=== PATIENT | male | born 1935 | race Caucasian/White ===

== ENCOUNTER 2022-09-11 15:38 | Inpatient (IN) | payer MEDICARE ==
[~2022-09-11] VITALS: Ht 177.8 cm; Wt 70.5 kg
[2022-09-11 15:58] VITALS: BP 196/81
[2022-09-11 16:13] LABS: ACT PARTIAL THROMBO TIME 26.8 SECONDS (20.0-32.1); INTERNATIONAL NORM RATIO 1.1 (2.0-3.5)
[2022-09-11 16:23] LABS: ALKALINE PHOSPHATASE 76 U/L (46-116); BUN 17 mg/dl (9-23); CHLORIDE 85 mmol/L (98-107); CREATININE 1.16 mg/dL (0.70-1.30); LIPASE 51 U/L (12-53); POTASSIUM 4.3 mmol/L (3.4-5.1); SGPT/ALT 19 U/L (10-49); SODIUM 121 mmol/L (136-145); TOTAL PROTEIN 6.9 gm/dL (6.0-8.0)
[2022-09-11 16:24] LABS: BILIRUBIN Negative (Negative); BLOOD Negative (Negative); CLARITY Clear (Clear); COLOR Yellow (Yellow); GLUCOSE Negative (Negative); KETONE Negative (Negative); LEUKO ESTERASE Negative (Negative); NITRITE Negative (Negative); PH 7.5 (4.5-8.0); SPECIFIC GRAVITY 1.015 (1.001-1.030)
[2022-09-11 17:08] LABS: RBC 0-2 rbc/hpf (0-2); WBC 0-2 wbc/hpf (0-5)
[2022-09-11 17:26] LABS: PLATELET COUNT AUTOMATED 137 10*3/uL (130-400); WHITE BLOOD COUNT 7.5 10*3/uL (4.8-10.8)
[2022-09-11 17:34] LABS: MEAN PLATELET VOLUME 7.6 fl (9.6-12.3)
[2022-09-11] MEDS ORDERED: LISINOPRIL5 MG PO (18:53)
[2022-09-11] MEDS ORDERED: SIMVASTATIN40 MG PO (18:53)
[2022-09-11] MEDS ORDERED: TERAZOSIN5 MG PO (18:53)
[2022-09-11] MEDS ORDERED: LATANOPROST2.5 ML OP (18:54)
[2022-09-11 20:37] VITALS: BP 163/60
[2022-09-12 00:56] LABS: BUN 18 mg/dl (9-23); CHLORIDE 86 mmol/L (98-107); CREATININE 1.24 mg/dL (0.70-1.30); POTASSIUM 3.7 mmol/L (3.4-5.1); SODIUM 122 mmol/L (136-145)
[2022-09-12 02:36] VITALS: BP 160/58
[2022-09-12 06:23] LABS: ALKALINE PHOSPHATASE 62 U/L (46-116); BUN 18 mg/dl (9-23); CHLORIDE 89 mmol/L (98-107); CHOLESTEROL 113 mg/dL (<200); CREATININE 1.23 mg/dL (0.70-1.30); FREE T4 1.48 ng/dl (0.89-1.76); LDL CHOLESTEROL 51 mg/dL (9-159); POTASSIUM 3.7 mmol/L (3.4-5.1); SGPT/ALT 18 U/L (10-49); SODIUM 125 mmol/L (136-145); THYROID STIM HORMONE (HS) 1.671 uIU/ml (0.550-4.780); TOTAL PROTEIN 5.7 gm/dL (6.0-8.0); TRIGLYCERIDES 73 mg/dl (<150)
[2022-09-12 07:43] LABS: HEMATOCRIT 23.3 % (42.0-52.0); MEAN CELL VOLUME 86.3 fl (80.0-94.0); MEAN CORPUSCULAR HGB 32.6 pg (27.0-31.0); MEAN PLATELET VOLUME 8.2 fl (9.6-12.3); PLATELET COUNT AUTOMATED 145 10*3/uL (130-400); RED CELL DISTRI WIDTH 11.8 % (0-14.5); WHITE BLOOD COUNT 6.4 10*3/uL (4.8-10.8)
[2022-09-12 08:30] VITALS: BP 164/50
[2022-09-12 08:36] LABS: MEAN CORPUSCULAR HGB CONC 37.8 g/dl (33.0-37.0)
[2022-09-12 08:37] LABS: MANUAL DIFF REFLEX YES
[2022-09-12 08:41] LABS: BURR CELLS FEW; PLATELET SUFFICIENCY NORMAL (NORMAL); POLYCHROMASIA SLIGHT; TOTAL CELLS COUNTED 100 #CELLS
[2022-09-12 14:10] VITALS: BP 137/46
[2022-09-12 14:36] LABS: BUN 17 mg/dl (9-23); CHLORIDE 86 mmol/L (98-107); SODIUM 122 mmol/L (136-145)
[2022-09-12 15:45] VITALS: BP 173/83
[2022-09-12] MEDS ORDERED: HYDROCHLOROTHIA25 M1 PO (16:39)
[2022-09-12] MEDS ORDERED: TIMOLOL MALEATE10 M1 OPH (16:40)
[2022-09-12] MEDS ORDERED: TOPCARE OMEPRAZ20 MG PO (16:42)
[2022-09-12] MEDS ORDERED: NAPROXEN250 MG PO (16:43)
[2022-09-12] MEDS ORDERED: TYLENOL EXTRA500 M2 PO (16:43)
[2022-09-12] MEDS ORDERED: LYSINE500 MG PO (16:44)
[2022-09-12] MEDS ORDERED: MEN'S 50 PLUS1 EACH PO (16:45)
[2022-09-12] MEDS ORDERED: MIRALAX POWDER17 G1 PO (16:59)
[2022-09-12 18:37] LABS: BUN 17 mg/dl (9-23); CHLORIDE 85 mmol/L (98-107); POTASSIUM 4.1 mmol/L (3.4-5.1); SODIUM 121 mmol/L (136-145)
[2022-09-12 20:00] VITALS: BP 164/57
[2022-09-13] VITALS: BP 153/55
[2022-09-13 00:40] LABS: BUN 18 mg/dl (9-23); CHLORIDE 88 mmol/L (98-107); CREATININE 1.14 mg/dL (0.70-1.30); POTASSIUM 3.9 mmol/L (3.4-5.1); SODIUM 123 mmol/L (136-145)
[2022-09-13 07:01] LABS: HEMATOCRIT 25.4 % (42.0-52.0); MEAN CELL VOLUME 85.8 fl (80.0-94.0); MEAN CORPUSCULAR HGB 32.4 pg (27.0-31.0); RED BLOOD COUNT 2.96 10*6/uL (4.50-5.90); RED CELL DISTRI WIDTH 11.7 % (0-14.5); WHITE BLOOD COUNT 6.7 10*3/uL (4.8-10.8)
[2022-09-13 07:02] LABS: MANUAL DIFF REFLEX YES; MEAN CORPUSCULAR HGB CONC 37.8 g/dl (33.0-37.0)
[2022-09-13 07:03] LABS: PLATELET COUNT AUTOMATED 213 10*3/uL (130-400)
[2022-09-13 07:05] LABS: ALKALINE PHOSPHATASE 66 U/L (46-116); BUN 15 mg/dl (9-23); CHLORIDE 89 mmol/L (98-107); CREATININE 1.21 mg/dL (0.70-1.30); SGPT/ALT 16 U/L (10-49); SODIUM 123 mmol/L (136-145)
[2022-09-13 08:00] VITALS: BP 189/73
[2022-09-13 08:03] LABS: BASOPHILS 1 % (0-1); OVALOCYTES FEW; PLATELET SUFFICIENCY NORMAL (NORMAL); POLYCHROMASIA SLIGHT; TOTAL CELLS COUNTED 100 #CELLS
[2022-09-13 08:04] LABS: BURR CELLS FEW
[2022-09-13 08:16] VITALS: BP 166/72
[2022-09-13 12:00] VITALS: BP 176/54
[2022-09-13 16:00] VITALS: BP 159/86
[2022-09-13 20:00] VITALS: BP 155/71
[2022-09-14] VITALS: BP 160/56
[2022-09-14 07:29] LABS: BUN 20 mg/dl (9-23); CHLORIDE 89 mmol/L (98-107); CREATININE 1.12 mg/dL (0.70-1.30); POTASSIUM 3.7 mmol/L (3.4-5.1); SODIUM 124 mmol/L (136-145)
[2022-09-14 08:00] VITALS: BP 160/50
[2022-09-14 08:08] LABS: HEMATOCRIT 24.5 % (42.0-52.0); MEAN CORPUSCULAR HGB 32.6 pg (27.0-31.0); MEAN PLATELET VOLUME 8.2 fl (9.6-12.3); PLATELET COUNT AUTOMATED 157 10*3/uL (130-400); RED BLOOD COUNT 2.85 10*6/uL (4.50-5.90); RED CELL DISTRI WIDTH 11.7 % (0-14.5)
[2022-09-14 08:47] LABS: MANUAL DIFF REFLEX YES
[2022-09-14 08:50] LABS: PLATELET SUFFICIENCY NORMAL (NORMAL); TOTAL CELLS COUNTED 100 #CELLS
[2022-09-14 12:00] VITALS: BP 153/53
[2022-09-14 16:00] VITALS: BP 155/56
[2022-09-14 20:00] VITALS: BP 179/54
[2022-09-15] VITALS: BP 148/48
[2022-09-15 06:00] LABS: BUN 21 mg/dl (9-23); CHLORIDE 89 mmol/L (98-107); CREATININE 1.15 mg/dL (0.70-1.30); POTASSIUM 3.7 mmol/L (3.4-5.1); SODIUM 126 mmol/L (136-145)
[2022-09-15 08:00] VITALS: BP 137/39
[2022-09-15 12:00] VITALS: BP 178/56
[2022-09-15 16:00] VITALS: BP 162/42
[2022-09-15 20:37] VITALS: BP 164/78
[2022-09-15 22:58] VITALS: BP 135/59
[2022-09-16] VITALS: BP 151/48
[2022-09-16 07:29] LABS: BUN 24 mg/dl (9-23); CHLORIDE 91 mmol/L (98-107); CREATININE 1.25 mg/dL (0.70-1.30); SODIUM 127 mmol/L (136-145)
[2022-09-16 07:53] LABS: BASO % 0.2 % (0.0-1.0); EOS # 0.2 10*3/uL (0.0-0.4); EOS % 1.5 % (1.0-4.0); HEMATOCRIT 24.9 % (42.0-52.0); LYMPH # 0.9 10*3/uL (1.3-4.4); LYMPH % 9.5 % (27.0-41.0); MEAN CELL VOLUME 88.6 fl (80.0-94.0); MEAN CORPUSCULAR HGB 32.4 pg (27.0-31.0); MEAN CORPUSCULAR HGB CONC 36.5 g/dl (33.0-37.0); MEAN PLATELET VOLUME 8.3 fl (9.6-12.3); MONO # 1.2 10*3/uL (0.1-1.0); MONO % 12.2 % (3.0-9.0); NEUT # 7.4 10*3/uL (2.3-7.9); NEUT % 76.3 % (47.0-73.0); PLATELET COUNT AUTOMATED 165 10*3/uL (130-400); RED BLOOD COUNT 2.81 10*6/uL (4.50-5.90); RED CELL DISTRI WIDTH 11.8 % (0-14.5); WHITE BLOOD COUNT 9.7 10*3/uL (4.8-10.8)
[2022-09-16 08:00] VITALS: BP 143/48
[2022-09-16 12:00] VITALS: BP 110/34
[2022-09-16 16:00] VITALS: BP 163/55
[2022-09-16 20:00] VITALS: BP 137/42
[2022-09-17] VITALS: BP 142/54
[2022-09-17 08:00] VITALS: BP 175/64
[2022-09-17 08:06] LABS: BUN 24 mg/dl (9-23); CHLORIDE 92 mmol/L (98-107); CREATININE 1.33 mg/dL (0.70-1.30); POTASSIUM 3.8 mmol/L (3.4-5.1); SODIUM 128 mmol/L (136-145)
[2022-09-17 08:35] LABS: BASO % 0.3 % (0.0-1.0); EOS # 0.1 10*3/uL (0.0-0.4); EOS % 1.6 % (1.0-4.0); HEMATOCRIT 25.8 % (42.0-52.0); LYMPH # 0.9 10*3/uL (1.3-4.4); LYMPH % 12.9 % (27.0-41.0); MEAN CELL VOLUME 88.4 fl (80.0-94.0); MEAN CORPUSCULAR HGB 32.9 pg (27.0-31.0); MEAN PLATELET VOLUME 8.3 fl (9.6-12.3); MONO # 0.9 10*3/uL (0.1-1.0); MONO % 13.4 % (3.0-9.0); NEUT % 71.5 % (47.0-73.0); PLATELET COUNT AUTOMATED 172 10*3/uL (130-400); RED BLOOD COUNT 2.92 10*6/uL (4.50-5.90); RED CELL DISTRI WIDTH 11.8 % (0-14.5); WHITE BLOOD COUNT 6.9 10*3/uL (4.8-10.8)
[2022-09-17 08:38] LABS: MEAN CORPUSCULAR HGB CONC 37.2 g/dl (33.0-37.0)
[2022-09-17 12:00] VITALS: BP 157/58
[2022-09-17 16:00] VITALS: BP 162/63
[2022-09-17 20:00] VITALS: BP 154/40
[2022-09-18] VITALS: BP 138/43
[2022-09-18 07:13] LABS: BASO % 0.5 % (0.0-1.0); EOS # 0.1 10*3/uL (0.0-0.4); EOS % 2.1 % (1.0-4.0); HEMATOCRIT 25.8 % (42.0-52.0); LYMPH # 0.9 10*3/uL (1.3-4.4); LYMPH % 15.5 % (27.0-41.0); MEAN CELL VOLUME 87.2 fl (80.0-94.0); MEAN CORPUSCULAR HGB 31.8 pg (27.0-31.0); MEAN CORPUSCULAR HGB CONC 36.4 g/dl (33.0-37.0); MEAN PLATELET VOLUME 7.9 fl (9.6-12.3); MONO # 0.9 10*3/uL (0.1-1.0); MONO % 14.8 % (3.0-9.0); NEUT # 3.9 10*3/uL (2.3-7.9); NEUT % 66.8 % (47.0-73.0); PLATELET COUNT AUTOMATED 159 10*3/uL (130-400); RED BLOOD COUNT 2.96 10*6/uL (4.50-5.90); RED CELL DISTRI WIDTH 11.7 % (0-14.5); WHITE BLOOD COUNT 5.8 10*3/uL (4.8-10.8)
[2022-09-18 07:23] LABS: BUN 24 mg/dl (9-23); CHLORIDE 92 mmol/L (98-107); CREATININE 1.19 mg/dL (0.70-1.30); POTASSIUM 3.9 mmol/L (3.4-5.1); SODIUM 128 mmol/L (136-145)
[2022-09-18 08:00] VITALS: BP 109/59
[2022-09-18] MEDS ORDERED: FUROSEMIDE20 M1 PO (09:40)
[2022-09-18] MEDS ORDERED: CALCIUM CARBON200 MG PO (09:40)
[2022-09-18] MEDS ORDERED: BACITRACIN ZINC28 GM T (09:40)
[2022-09-18] MEDS ORDERED: AMLODIPINE BESYL5 MG PO (09:41)
[2022-09-18] MEDS ORDERED: LISINOPRIL10 M1 PO (09:41)
[2022-09-18 12:00] VITALS: BP 165/50
== END 2022-09-18 14:53 | DRG 641 ==
LOC: ED 15:38 → EDHOLD 18:39 → 4E 18:39
PROVIDERS: Emergency Medicine; Internal Medicine; Registered Nurse; Student in an Organized Health Care Education/Training Program; ADMIT Internal Medicine; ATTEND Internal Medicine
DX: E87.1 Hypo-osmolality and hyponatremia (principal); I16.0 Hypertensive urgency; I10 Essential (primary) hypertension; G20 Parkinson's disease; E78.5 Hyperlipidemia, unspecified; D64.9 Anemia, unspecified; E87.8 Other disorders of electrolyte and fluid balance, not elsewhere classified; R73.9 Hyperglycemia, unspecified; E83.42 Hypomagnesemia; E80.6 Other disorders of bilirubin metabolism; G25.2 Other specified forms of tremor; M50.30 Other cervical disc degeneration, unspecified cervical region; N40.1 Benign prostatic hyperplasia with lower urinary tract symptoms; Z20.822 Contact with and (suspected) exposure to COVID-19; S51.802A Unspecified open wound of left forearm, initial encounter; Z82.49 Family history of ischemic heart disease and other diseases of the circulatory system; W18.39XA Other fall on same level, initial encounter; Y93.89 Activity, other specified; Y92.89 Other specified places as the place of occurrence of the external cause; Y99.8 Other external cause status; T50.2X5A Adverse effect of carbonic-anhydrase inhibitors, benzothiadiazides and other diuretics, initial encounter

== ENCOUNTER 2022-12-21 22:21 | Emergency (ER) | payer MEDICARE ==
[~2022-12-21 22:21] MED LIST: AMLODIPINE BESYL5 MG PO; BACITRACIN ZINC28 GM T; CALCIUM CARBON200 MG PO; FUROSEMIDE20 M1 PO; HYDROCHLOROTHIA25 M1 PO; LATANOPROST2.5 ML OP; LISINOPRIL10 M1 PO; LISINOPRIL5 MG PO; LYSINE500 MG PO; MEN'S 50 PLUS1 EACH PO; MIRALAX POWDER17 G1 PO; NAPROXEN250 MG PO; SIMVASTATIN40 MG PO; TERAZOSIN5 MG PO; TIMOLOL MALEATE10 M1 OPH; TOPCARE OMEPRAZ20 MG PO; TYLENOL EXTRA500 M2 PO
[2022-12-21 22:43] LABS: HEMATOCRIT 26.4 % (42.0-52.0); MEAN CELL VOLUME 85.2 fl (80.0-94.0); MEAN CORPUSCULAR HGB CONC 36.4 g/dl (33.0-37.0); MEAN PLATELET VOLUME 7.7 fl (9.6-12.3); PLATELET COUNT AUTOMATED 178 10*3/uL (130-400); RED CELL DISTRI WIDTH 12.3 % (0-14.5)
[2022-12-21 22:44] LABS: MANUAL DIFF REFLEX YES
[2022-12-21 22:57] LABS: TOTAL PROTEIN 6.8 gm/dL (6.0-8.0)
[2022-12-21 23:06] LABS: PLATELET SUFFICIENCY NORMAL (NORMAL); POLYCHROMASIA SLIGHT; TOTAL CELLS COUNTED 100 #CELLS
[2022-12-21 23:07] LABS: BURR CELLS FEW; OVALOCYTES FEW
[2022-12-22] MEDS ORDERED: ZITHROMAX250 MG PO (00:46)
[2022-12-22] MEDS ORDERED: PREDNISONE20 M1 PO (00:46)
== END 2022-12-22 01:01 | disposition home or self-care (01) ==
LOC: ED 22:21
PROVIDERS: Internal Medicine
DX: B34.9 Viral infection, unspecified (principal); Z20.822 Contact with and (suspected) exposure to COVID-19; E87.1 Hypo-osmolality and hyponatremia; E83.42 Hypomagnesemia; D64.9 Anemia, unspecified; I10 Essential (primary) hypertension; N18.31 Chronic kidney disease, stage 3a; R73.9 Hyperglycemia, unspecified; R79.82 Elevated C-reactive protein (CRP); Z79.899 Other long term (current) drug therapy; Z90.89 Acquired absence of other organs

== ENCOUNTER 2023-09-28 20:26 | Inpatient (IN) | payer MEDICARE ==
[~2023-09-28] VITALS: Ht 177.8 cm; Wt 63.1 kg
[~2023-09-28 20:26] MED LIST changes: +PREDNISONE20 M1 PO; +ZITHROMAX250 MG PO
[2023-09-28 20:43] VITALS: BP 160/64
[2023-09-28] MEDS ORDERED: NORVASC2.5 MG PO (20:46)
[2023-09-28] MEDS ORDERED: LYSINE500 MG PO (20:47)
[2023-09-28] MEDS ORDERED: FLOMAX0.4 MG PO (20:50)
[2023-09-28] MEDS ORDERED: ROCKLATAN 0.022.5 ML OP (20:50)
[2023-09-28 21:42] LABS: BASO % 0.4 % (0.0-1.0); EOS % 0.8 % (1.0-4.0); HEMATOCRIT 25.1 % (42.0-52.0); LYMPH # 0.5 10*3/uL (1.3-4.4); LYMPH % 10.1 % (27.0-41.0); MEAN CORPUSCULAR HGB 32.3 pg (27.0-31.0); MEAN CORPUSCULAR HGB CONC 35.9 g/dl (33.0-37.0); MEAN PLATELET VOLUME 7.9 fl (9.6-12.3); MONO % 19.3 % (3.0-9.0); NEUT # 3.6 10*3/uL (2.3-7.9); PLATELET COUNT AUTOMATED 137 10*3/uL (130-400); RED BLOOD COUNT 2.79 10*6/uL (4.50-5.90); WHITE BLOOD COUNT 5.2 10*3/uL (4.8-10.8)
[2023-09-28 22:01] LABS: ACT PARTIAL THROMBO TIME 29.1 SECONDS (20.0-32.1)
[2023-09-28 22:06] LABS: ALKALINE PHOSPHATASE 66 U/L (46-116); BUN 24 mg/dl (9-23); CHLORIDE 93 mmol/L (98-107); CPK 143 U/L (34-171); POTASSIUM 4.2 mmol/L (3.4-5.1); SGPT/ALT 16 U/L (5-49)
[2023-09-28 22:42] LABS: BILIRUBIN Negative (Negative); BLOOD Negative (Negative); CLARITY Clear (Clear); COLOR Yellow (Yellow); GLUCOSE Negative (Negative); KETONE Negative (Negative); LEUKO ESTERASE Negative (Negative); NITRITE Negative (Negative)
[2023-09-28 23:33] LABS: CALCIUM OXALATE CRYSTALS Trace; YEAST TRACE
[2023-09-29 00:10] VITALS: BP 157/56
[2023-09-29 05:08] LABS: ALKALINE PHOSPHATASE 61 U/L (46-116); BUN 21 mg/dl (9-23); CHLORIDE 95 mmol/L (98-107); CHOLESTEROL 136 mg/dL (<200); LDL CHOLESTEROL 68 mg/dL (9-159); POTASSIUM 3.7 mmol/L (3.4-5.1); SGPT/ALT 14 U/L (5-49); TOTAL PROTEIN 5.7 gm/dL (6.0-8.0); TRIGLYCERIDES 41 mg/dl (<150)
[2023-09-29 06:15] LABS: MEAN CELL VOLUME 91.6 fl (80.0-94.0); MEAN CORPUSCULAR HGB 31.9 pg (27.0-31.0); MEAN CORPUSCULAR HGB CONC 34.8 g/dl (33.0-37.0); MEAN PLATELET VOLUME 8.5 fl (9.6-12.3); PLATELET COUNT AUTOMATED 152 10*3/uL (130-400); RED BLOOD COUNT 2.73 10*6/uL (4.50-5.90); RED CELL DISTRI WIDTH 12.3 % (0-14.5); WHITE BLOOD COUNT 4.2 10*3/uL (4.8-10.8)
[2023-09-29 06:21] LABS: MANUAL DIFF REFLEX YES
[2023-09-29 06:47] LABS: BURR CELLS FEW; OVALOCYTES FEW; PLATELET SUFFICIENCY NORMAL (NORMAL); POLYCHROMASIA SLIGHT; TOTAL CELLS COUNTED 100 #CELLS
[2023-09-29 06:53] LABS: VITAMIN D, 25-HYDROXY 48.3 ng/mL (30-100)
[2023-09-29 08:00] VITALS: BP 159/62
[2023-09-29 12:00] VITALS: BP 148/68
[2023-09-29 16:30] LABS: BUN 24 mg/dl (9-23); CHLORIDE 95 mmol/L (98-107); POTASSIUM 3.7 mmol/L (3.4-5.1)
[2023-09-29 20:00] VITALS: BP 164/64
[2023-09-30] VITALS: BP 128/59
[2023-09-30 07:18] LABS: HEMATOCRIT 24.8 % (42.0-52.0); MEAN CELL VOLUME 90.8 fl (80.0-94.0); MEAN CORPUSCULAR HGB 32.6 pg (27.0-31.0); MEAN CORPUSCULAR HGB CONC 35.9 g/dl (33.0-37.0); MEAN PLATELET VOLUME 8.5 fl (9.6-12.3); PLATELET COUNT AUTOMATED 151 10*3/uL (130-400); RED BLOOD COUNT 2.73 10*6/uL (4.50-5.90); RED CELL DISTRI WIDTH 12.5 % (0-14.5); WHITE BLOOD COUNT 4.4 10*3/uL (4.8-10.8)
[2023-09-30 07:20] LABS: MANUAL DIFF REFLEX YES
[2023-09-30 07:42] LABS: BUN 22 mg/dl (9-23); CHLORIDE 95 mmol/L (98-107); POTASSIUM 3.7 mmol/L (3.4-5.1)
[2023-09-30 08:16] LABS: POLYCHROMASIA SLIGHT; TOTAL CELLS COUNTED 100 #CELLS
[2023-09-30 08:17] LABS: PLATELET SUFFICIENCY NORMAL (NORMAL)
[2023-09-30 16:45] VITALS: BP 168/70
[2023-09-30 20:00] VITALS: BP 152/52
[2023-10-01] VITALS: BP 144/58
[2023-10-01 05:13] LABS: BUN 21 mg/dl (9-23); CHLORIDE 94 mmol/L (98-107); POTASSIUM 3.7 mmol/L (3.4-5.1)
[2023-10-01 08:00] VITALS: BP 166/62
[2023-10-01 12:00] VITALS: BP 160/76
[2023-10-01 16:00] VITALS: BP 159/61
[2023-10-01 20:00] VITALS: BP 163/73
[2023-10-02] VITALS: BP 178/62
[2023-10-02 05:19] LABS: BUN 18 mg/dl (9-23); CHLORIDE 92 mmol/L (98-107); POTASSIUM 3.5 mmol/L (3.4-5.1)
[2023-10-02 08:00] VITALS: BP 178/62
[2023-10-02] MEDS ORDERED: METFORMIN HYDR500 MG PO (09:08)
[2023-10-02 12:00] VITALS: BP 197/97
[2023-10-02 16:00] VITALS: BP 173/57
[2023-10-02 20:00] VITALS: BP 149/60
[2023-10-03] VITALS: BP 134/61
[2023-10-03 04:24] LABS: BASO % 0.2 % (0.0-1.0); EOS # 0.2 10*3/uL (0.0-0.4); EOS % 2.6 % (1.0-4.0); HEMATOCRIT 26.7 % (42.0-52.0); LYMPH # 1.1 10*3/uL (1.3-4.4); LYMPH % 16.6 % (27.0-41.0); MEAN CELL VOLUME 87.5 fl (80.0-94.0); MEAN CORPUSCULAR HGB 31.8 pg (27.0-31.0); MEAN CORPUSCULAR HGB CONC 36.3 g/dl (33.0-37.0); MONO # 0.8 10*3/uL (0.1-1.0); MONO % 12.1 % (3.0-9.0); NEUT # 4.5 10*3/uL (2.3-7.9); NEUT % 68.2 % (47.0-73.0); PLATELET COUNT AUTOMATED 150 10*3/uL (130-400); RED BLOOD COUNT 3.05 10*6/uL (4.50-5.90); WHITE BLOOD COUNT 6.6 10*3/uL (4.8-10.8)
[2023-10-03 04:48] LABS: BUN 14 mg/dl (9-23); CHLORIDE 93 mmol/L (98-107); POTASSIUM 3.8 mmol/L (3.4-5.1)
[2023-10-03 08:00] VITALS: BP 184/72
[2023-10-03 12:00] VITALS: BP 120/47
[2023-10-03 16:00] VITALS: BP 212/70
[2023-10-03 17:00] VITALS: BP 210/90
[2023-10-03 20:00] VITALS: BP 150/65
[2023-10-04] VITALS: BP 131/49
[2023-10-04 08:00] VITALS: BP 156/66
[2023-10-04 12:00] VITALS: BP 122/50
[2023-10-04 16:00] VITALS: BP 122/42
[2023-10-04 20:00] VITALS: BP 178/52
[2023-10-05 06:25] LABS: BUN 21 mg/dl (9-23); CHLORIDE 91 mmol/L (98-107); POTASSIUM 3.4 mmol/L (3.4-5.1)
[2023-10-05 08:00] VITALS: BP 155/52
[2023-10-05 12:00] VITALS: BP 143/52
[2023-10-05 16:00] VITALS: BP 190/64
[2023-10-05 16:30] VITALS: BP 192/66
[2023-10-05 20:00] VITALS: BP 168/57
[2023-10-06] VITALS: BP 130/57; BP 170/62
[2023-10-06 01:22] VITALS: BP 150/44
[2023-10-06 08:00] VITALS: BP 175/59
[2023-10-06 12:00] VITALS: BP 133/43
[2023-10-06 16:00] VITALS: BP 154/58
[2023-10-06 20:00] VITALS: BP 176/69
[2023-10-07] VITALS: BP 168/60
[2023-10-07 06:46] LABS: BASO % 0.1 % (0.0-1.0); EOS # 0.1 10*3/uL (0.0-0.4); EOS % 1.6 % (1.0-4.0); HEMATOCRIT 25.9 % (42.0-52.0); LYMPH # 0.9 10*3/uL (1.3-4.4); LYMPH % 12.8 % (27.0-41.0); MEAN CELL VOLUME 88.1 fl (80.0-94.0); MEAN CORPUSCULAR HGB CONC 36.3 g/dl (33.0-37.0); MEAN PLATELET VOLUME 8.2 fl (9.6-12.3); MONO % 14.7 % (3.0-9.0); NEUT # 4.8 10*3/uL (2.3-7.9); NEUT % 70.2 % (47.0-73.0); PLATELET COUNT AUTOMATED 205 10*3/uL (130-400); RED BLOOD COUNT 2.94 10*6/uL (4.50-5.90); RED CELL DISTRI WIDTH 11.8 % (0-14.5); WHITE BLOOD COUNT 6.9 10*3/uL (4.8-10.8)
[2023-10-07 06:58] LABS: BUN 14 mg/dl (9-23); CHLORIDE 92 mmol/L (98-107); POTASSIUM 3.9 mmol/L (3.4-5.1)
[2023-10-07 08:00] VITALS: BP 177/67
[2023-10-07 12:00] VITALS: BP 154/73
[2023-10-07 16:00] VITALS: BP 151/61
[2023-10-07 20:00] VITALS: BP 190/50
[2023-10-08] VITALS: BP 145/57
[2023-10-08 07:10] LABS: BUN 14 mg/dl (9-23); CHLORIDE 92 mmol/L (98-107); POTASSIUM 3.9 mmol/L (3.4-5.1)
[2023-10-08 07:20] LABS: BASO % 0.2 % (0.0-1.0); EOS # 0.1 10*3/uL (0.0-0.4); EOS % 1.8 % (1.0-4.0); HEMATOCRIT 25.5 % (42.0-52.0); LYMPH # 0.9 10*3/uL (1.3-4.4); LYMPH % 14.2 % (27.0-41.0); MEAN CORPUSCULAR HGB 31.7 pg (27.0-31.0); MEAN CORPUSCULAR HGB CONC 36.5 g/dl (33.0-37.0); MONO % 15.5 % (3.0-9.0); NEUT # 4.2 10*3/uL (2.3-7.9); NEUT % 67.5 % (47.0-73.0); PLATELET COUNT AUTOMATED 200 10*3/uL (130-400); RED BLOOD COUNT 2.93 10*6/uL (4.50-5.90); RED CELL DISTRI WIDTH 11.6 % (0-14.5); WHITE BLOOD COUNT 6.1 10*3/uL (4.8-10.8)
[2023-10-08 08:00] VITALS: BP 166/62
[2023-10-08 12:00] VITALS: BP 152/73
[2023-10-08] MEDS ORDERED: FINASTERIDE5 M1 PO (12:32)
[2023-10-08] MEDS ORDERED: LISINOPRIL20 MG PO (12:32)
[2023-10-08] MEDS ORDERED: AMLODIPINE BESYL5 MG PO (12:32)
[2023-10-08 16:00] VITALS: BP 151/96
[2023-10-08 20:00] VITALS: BP 143/90
[2023-10-08 23:55] VITALS: BP 170/68
[2023-10-09] VITALS: BP 170/62
[2023-10-09 08:00] VITALS: BP 188/70
== END 2023-10-09 10:58 | disposition home health service (06) | DRG 641 ==
LOC: ED 20:26 → 5E 22:59 → EDHOLD 22:59 → 5E 23:10
PROVIDERS: Family Medicine; Internal Medicine; Nurse Practitioner Family; Registered Nurse; Student in an Organized Health Care Education/Training Program; ADMIT Student in an Organized Health Care Education/Training Program; ATTEND Student in an Organized Health Care Education/Training Program
DX: E87.1 Hypo-osmolality and hyponatremia (principal); E83.42 Hypomagnesemia; E78.5 Hyperlipidemia, unspecified; I95.1 Orthostatic hypotension; R13.10 Dysphagia, unspecified; D64.9 Anemia, unspecified; R54 Age-related physical debility; R35.0 Frequency of micturition; N40.1 Benign prostatic hyperplasia with lower urinary tract symptoms; R73.9 Hyperglycemia, unspecified; Z82.49 Family history of ischemic heart disease and other diseases of the circulatory system; Z79.899 Other long term (current) drug therapy